=== PATIENT | female | born 1960 | race Two or more races ===

== ENCOUNTER 2018-07-07 17:10 | Inpatient (IN) | payer MEDICARE, MEDICAID ==
[~2018-07-07] VITALS: Ht 162.6 cm; Wt 107.6 kg
[2018-07-07] MEDS ORDERED: SODIUM CHLORIDE FLUSH 10ML SYR IVF ONE (17:30)
[2018-07-07] MEDS ORDERED: MORPHINE SULFATE 4 MG/ML, 1ML ONE ×2 (18:28→20:51)
[2018-07-07] MEDS ORDERED: ONDANSETRON 2MG/ML, 2ML ONE (18:28)
[2018-07-07] MEDS ORDERED: ONDANSETRON 2MG/ML, 2ML IVPush ONE (18:30)
[2018-07-07] MEDS: MORPHINE SULFATE 4 MG/ML, 1ML IVPush PRN ×2 (18:59→20:53)
[2018-07-07] MEDS ORDERED: SODIUM CHLORIDE FLUSH 10ML SYR IVF PRN (19:00)
[2018-07-07 19:02] LABS: BASOPHILS # (AUTO) 0.03 x10^3/uL (0-0.1); BASOPHILS % (AUTO) 1 % (0-1); EOSINOPHILS # (AUTO) 0.09 x10^3/uL (0-0.4); EOSINOPHILS % (AUTO) 2 % (1-7); LYMPHOCYTES # (AUTO) 1.39 x10^3/uL (1-3.4); LYMPHOCYTES % (AUTO) 27 % (22-44); MD NO; MEAN CORPUSCULAR HEMOGLOBIN 28.7 pg (27.0-34.8); MEAN CORPUSCULAR HGB CONC 32.8 g/dL (32.4-35.8); MEAN CORPUSCULAR VOLUME 87.3 fL (80-100); MEAN PLATELET VOLUME 8.1 fL (7.4-10.4); MONOCYTES # (AUTO) 0.39 x10^3/uL (0.2-0.8); MONOCYTES % (AUTO) 8 % (2-9); NEUTROPHILS # (AUTO) 3.21 x10^3/uL (1.8-6.8); NEUTROPHILS % (AUTO) 63 % (42-75); PLATELET COUNT 219 x10^3/uL (130-400); RED BLOOD COUNT 3.99 x10^6/uL (3.82-5.3); RED CELL DISTRIBUTION WIDTH 17.1 % (9.6-15.2)
[2018-07-07 19:12] LABS: INTERNATIONAL NORMALIZED RATIO 1.2 (0.93-1.1); PROTHROMBIN TIME 12.5 Seconds (9.6-11.5)
[2018-07-07 19:14] LABS: ANION GAP 6 mmol/L (5-15); CALCIUM 7.7 mg/dL (8.5-10.1); CHLORIDE 109 mmol/L (98-107)
[2018-07-07 19:15] LABS: CREATININE 0.78 mg/dL (0.55-1.02)
--- NOTE | 2018-07-07 19:22 | NUR ---
PT RESTING ON GURNEY RR EVEN AND UNLABORED. PT ON CONT. SPO2, BP MONITORING, VSS. PT DENIES NEEDS ATT.
[2018-07-07] MEDS ORDERED: ONDANSETRON 2MG/ML, 2ML IVPush PRN (19:30)
[2018-07-07] MEDS ORDERED: POLYETHYLENE GLYCOL 17 GM PACKET PO PRN (19:30)
[2018-07-07] MEDS ORDERED: morphine SULFATE 10 MG/ML, 1ML IVPush PRN (19:30)
--- NOTE | 2018-07-07 20:13 | NUR ---
marixa (ALEJA) [phone] (CELL) [phone] (HOME) CLEMENTE (SON) [phone] (CELL)
--- NOTE | 2018-07-07 21:03 | NUR ---
REPORT GIVEN TO JAIR PETTY
[2018-07-07] MEDS: SODIUM CHLORIDE 0.9% 1,000 ML IV SCH (21:20)
[2018-07-07] MEDS: GABAPENTIN 300 MG CAPSULE PO SCH (21:20)
[2018-07-07 21:31] VITALS: BP 174/94
[2018-07-07 21:33] VITALS: BP 157/90
[2018-07-08 01:58] VITALS: BP 158/88
[2018-07-08 05:51] LABS: ANION GAP 5 mmol/L (5-15); CALCIUM 7.6 mg/dL (8.5-10.1); CHLORIDE 106 mmol/L (98-107)
[2018-07-08 05:55] LABS: CREATININE 0.81 mg/dL (0.55-1.02)
[2018-07-08 06:04] LABS: BASOPHILS # (AUTO) 0.04 x10^3/uL (0-0.1); BASOPHILS % (AUTO) 1 % (0-1); EOSINOPHILS # (AUTO) 0.17 x10^3/uL (0-0.4); EOSINOPHILS % (AUTO) 2 % (1-7); LYMPHOCYTES % (AUTO) 17 % (22-44); MD NO; MEAN CORPUSCULAR HEMOGLOBIN 28.7 pg (27.0-34.8); MEAN CORPUSCULAR HGB CONC 33.1 g/dL (32.4-35.8); MEAN CORPUSCULAR VOLUME 86.8 fL (80-100); MONOCYTES # (AUTO) 0.79 x10^3/uL (0.2-0.8); MONOCYTES % (AUTO) 11 % (2-9); NEUTROPHILS % (AUTO) 69 % (42-75); PLATELET COUNT 208 x10^3/uL (130-400); RED BLOOD COUNT 3.83 x10^6/uL (3.82-5.3); RED CELL DISTRIBUTION WIDTH 16.7 % (9.6-15.2)
[2018-07-08 07:06] VITALS: BP 159/89
[2018-07-08] MEDS ORDERED: ROPIvacaine/PF 0.5%, 30 ML ONE (08:20)
[2018-07-08] MEDS ORDERED: FENTANYL PF 100 MCG/2ML ONE ×2 (08:29→09:48)
[2018-07-08] MEDS ORDERED: LABETALOL 5MG/ML, 20ML IV PRN (08:30)
[2018-07-08] MEDS ORDERED: OXYcodone 5 MG/5 ML ORAL.SOL UDC PO PRN (08:30)
[2018-07-08] MEDS ORDERED: MEPERIDINE/PF 25MG/0.5ML IVPush PRN (08:30)
[2018-07-08] MEDS ORDERED: ACETAMINOPHEN 325 MG TABLET PO PRN ×2 (08:30→11:30)
[2018-07-08] MEDS ORDERED: hydrALAzine 20 MG/ML, 1ML IV PRN (08:30)
[2018-07-08] MEDS ORDERED: METOCLOPRAMIDE 5 MG/ML, 2ML IV PRN (08:30)
[2018-07-08] MEDS ORDERED: LORazepam 2 MG/ML, 1ML IVPush PRN (08:30)
[2018-07-08] MEDS ORDERED: HYDROmorphone 2 MG/ML, 1ML IVPush PRN (08:30)
[2018-07-08] MEDS ORDERED: LIDOCAINE PF 2%, 5ML ONE (08:35)
[2018-07-08] MEDS ORDERED: GLYCOPYRROLATE 0.2MG/1ML, 5ML ONE (08:35)
[2018-07-08] MEDS ORDERED: KETOROLAC 30 MG/1 ML ONE (08:35)
[2018-07-08] MEDS ORDERED: PROPOFOL 10 MG/ML, 20ML ONE (08:35)
[2018-07-08] MEDS ORDERED: CEFAZOLIN 1,000 MG ONE (08:35)
[2018-07-08] MEDS ORDERED: ROCURONIUM 10 MG/ML,10ML ONE (08:35)
[2018-07-08] MEDS ORDERED: DEXAMETHASONE 4 MG/ML, 5ML ONE (08:35)
[2018-07-08] MEDS ORDERED: ONDANSETRON 2MG/ML, 2ML ONE (08:35)
[2018-07-08] MEDS ORDERED: NEOSTIGMINE 1 MG/ML, 10ML ONE (08:35)
[2018-07-08] MEDS ORDERED: SUCCINYLCHOLINE 20 MG/ML, 10ML ONE (08:35)
[2018-07-08] MEDS: GABAPENTIN 300 MG CAPSULE PO SCH ×3 (08:38→21:22)
[2018-07-08] MEDS ORDERED: TRANEXAMIC ACID 100 MG/ML, 10ML ONE (08:56)
[2018-07-08] MEDS ORDERED: AMLODIPINE 5 MG TABLET PO ONE (09:00)
[2018-07-08] MEDS ORDERED: MIDAZOLAM 1 MG/ML, 2ML ONE (09:06)
[2018-07-08] MEDS ORDERED: NEOSPORIN OINT, 15GM ONE (09:26)
[2018-07-08] MEDS ORDERED: OXYcodone 5 MG/5 ML ORAL.SOL UDC ONE (09:48)
[2018-07-08] MEDS ORDERED: ACETAMINOPHEN 650 MG/20.3 ML UDC ONE (09:48)
[2018-07-08] MEDS: FENTANYL PF 100 MCG/2ML IV PRN ×4 (09:55→10:35)
[2018-07-08] MEDS ORDERED: MORPHINE SULFATE 4 MG/ML, 1ML ONE (10:27)
[2018-07-08] MEDS: MORPHINE SULFATE 4 MG/ML, 1ML IVPush PRN ×2 (10:28→10:40)
[2018-07-08 11:05] VITALS: BP 158/90
[2018-07-08] MEDS: SODIUM CHLORIDE 0.9% 1,000 ML IV SCH (11:18)
[2018-07-08] MEDS ORDERED: BISACODYL 10 MG SUPP PR PRN (11:30)
[2018-07-08] MEDS ORDERED: MAGNESIUM HYDROXIDE 8%, 30ML UDC PO PRN (11:30)
[2018-07-08] MEDS ORDERED: ALUMINUM/MAG/SIMETHICONE 30 ML UDC PO PRN (11:30)
[2018-07-08] MEDS ORDERED: SENNA/DOCUSATE TABLET PO PRN (11:30)
[2018-07-08] MEDS: HYDROcodone/APAP 7.5-325MG/15ML UDC PO PRN ×2 (12:22→21:22)
[2018-07-08] MEDS: POTASSIUM CHLORIDE 10 MEQ in D5%-0.45% NACL 1,000 ML IV SCH (12:24)
[2018-07-08 12:46] VITALS: BP 145/87
[2018-07-08] MEDS: CEFAZOLIN PMX 1GM/50ML 50 ML IVPB SCH (16:43)
[2018-07-08] MEDS: KETOROLAC 30 MG/1 ML IV SCH (17:35)
[2018-07-08 19:35] VITALS: BP 157/83
[2018-07-08] MEDS ORDERED: ZOLPIDEM 5MG TABLET PO PRN (21:00)
[2018-07-08] MEDS: DOCUSATE 100 MG CAPSULE PO SCH (21:22)
[2018-07-09] MEDS: SODIUM CHLORIDE 0.9% 1,000 ML IV SCH ×3 (00:20→09:59)
[2018-07-09] MEDS: CEFAZOLIN PMX 1GM/50ML 50 ML IVPB SCH (01:02)
[2018-07-09] MEDS: KETOROLAC 30 MG/1 ML IV SCH ×2 (01:54→08:57)
[2018-07-09 03:29] VITALS: BP 154/95
[2018-07-09] MEDS: HYDROcodone/APAP 7.5-325MG/15ML UDC PO PRN ×5 (04:31→20:40)
[2018-07-09 05:29] LABS: ANION GAP 5 mmol/L (5-15); CALCIUM 7.6 mg/dL (8.5-10.1); CHLORIDE 104 mmol/L (98-107); CREATININE 0.85 mg/dL (0.55-1.02)
[2018-07-09 05:31] LABS: BASOPHILS # (AUTO) 0.01 x10^3/uL (0-0.1); BASOPHILS % (AUTO) 0 % (0-1); EOSINOPHILS % (AUTO) 0 % (1-7); LYMPHOCYTES # (AUTO) 0.69 x10^3/uL (1-3.4); LYMPHOCYTES % (AUTO) 10 % (22-44); MD NO; MEAN CORPUSCULAR HEMOGLOBIN 28.4 pg (27.0-34.8); MEAN CORPUSCULAR HGB CONC 32.4 g/dL (32.4-35.8); MEAN CORPUSCULAR VOLUME 87.7 fL (80-100); MEAN PLATELET VOLUME 8.7 fL (7.4-10.4); MONOCYTES # (AUTO) 0.49 x10^3/uL (0.2-0.8); MONOCYTES % (AUTO) 7 % (2-9); NEUTROPHILS # (AUTO) 5.95 x10^3/uL (1.8-6.8); NEUTROPHILS % (AUTO) 83 % (42-75); PLATELET COUNT 149 x10^3/uL (130-400); RED BLOOD COUNT 3.06 x10^6/uL (3.82-5.3); RED CELL DISTRIBUTION WIDTH 16.4 % (9.6-15.2)
[2018-07-09] MEDS: ENOXAPARIN 30 MG/0.3 ML SQ SCH ×2 (05:57→17:41)
[2018-07-09 06:50] VITALS: BP 170/92
[2018-07-09] MEDS: GABAPENTIN 300 MG CAPSULE PO SCH ×3 (08:25→20:40)
[2018-07-09] MEDS: MULTIVITAMINS/MINERALS TABLET PO SCH (08:25)
[2018-07-09] MEDS: DOCUSATE 100 MG CAPSULE PO SCH ×2 (08:25→20:40)
[2018-07-09] MEDS: POTASSIUM CHLORIDE 10 MEQ in D5%-0.45% NACL 1,000 ML IV SCH (08:25)
[2018-07-09] MEDS: LEVOTHYROXINE 50 MCG TABLET PO SCH (08:56)
[2018-07-09] MEDS: LISINOPRIL 10 MG TABLET PO SCH (08:57)
[2018-07-09] MEDS: AMLODIPINE 5 MG TABLET PO SCH (08:57)
[2018-07-09 14:04] VITALS: BP 126/64
[2018-07-09 19:11] VITALS: BP 125/74
[2018-07-10 01:34] VITALS: BP 143/80
[2018-07-10] MEDS: HYDROcodone/APAP 7.5-325MG/15ML UDC PO PRN ×4 (02:39→18:32)
[2018-07-10] MEDS: SODIUM CHLORIDE 0.9% 1,000 ML IV SCH ×2 (03:00→16:20)
[2018-07-10] MEDS: POTASSIUM CHLORIDE 10 MEQ in D5%-0.45% NACL 1,000 ML IV SCH (03:58)
[2018-07-10] MEDS: LEVOTHYROXINE 50 MCG TABLET PO SCH (05:17)
[2018-07-10] MEDS: ENOXAPARIN 30 MG/0.3 ML SQ SCH ×2 (05:17→18:32)
[2018-07-10 05:47] LABS: BASOPHILS # (AUTO) 0.03 x10^3/uL (0-0.1); BASOPHILS % (AUTO) 1 % (0-1); EOSINOPHILS # (AUTO) 0.15 x10^3/uL (0-0.4); EOSINOPHILS % (AUTO) 2 % (1-7); LYMPHOCYTES % (AUTO) 27 % (22-44); MD NO; MEAN CORPUSCULAR HEMOGLOBIN 29.3 pg (27.0-34.8); MEAN CORPUSCULAR HGB CONC 33.6 g/dL (32.4-35.8); MEAN CORPUSCULAR VOLUME 87.2 fL (80-100); MONOCYTES # (AUTO) 0.68 x10^3/uL (0.2-0.8); MONOCYTES % (AUTO) 11 % (2-9); NEUTROPHILS # (AUTO) 3.76 x10^3/uL (1.8-6.8); NEUTROPHILS % (AUTO) 60 % (42-75); PLATELET COUNT 148 x10^3/uL (130-400); RED BLOOD COUNT 2.93 x10^6/uL (3.82-5.3); RED CELL DISTRIBUTION WIDTH 17.4 % (9.6-15.2)
[2018-07-10 05:57] LABS: ANION GAP 5 mmol/L (5-15); CALCIUM 7.5 mg/dL (8.5-10.1); CHLORIDE 106 mmol/L (98-107)
[2018-07-10 07:45] VITALS: BP 135/82
[2018-07-10] MEDS: MULTIVITAMINS/MINERALS TABLET PO SCH (10:47)
[2018-07-10] MEDS: AMLODIPINE 5 MG TABLET PO SCH (10:47)
[2018-07-10] MEDS: DOCUSATE 100 MG CAPSULE PO SCH (10:47)
[2018-07-10] MEDS: GABAPENTIN 300 MG CAPSULE PO SCH ×2 (10:47→16:11)
[2018-07-10] MEDS: LISINOPRIL 10 MG TABLET PO SCH (10:47)
[2018-07-10 12:15] VITALS: BP 122/75
[2018-07-10] MEDS ORDERED: LEVO50TA PO (12:23)
[2018-07-10] MEDS ORDERED: AMLO-150 PO (12:23)
[2018-07-10] MEDS ORDERED: CELE200C PO (12:23)
[2018-07-10] MEDS ORDERED: MULT-484 PO (12:23)
[2018-07-10] MEDS ORDERED: GABA300C10 PO (12:23)
[2018-07-10] MEDS ORDERED: LISI-167 PO (12:23)
[2018-07-10] MEDS ORDERED: ACET325T14 PO (12:23)
[2018-07-10] MEDS ORDERED: DOCU-131 PO (12:23)
[2018-07-10] MEDS ORDERED: HYDR15SO3 PO (12:23)
[2018-07-10] MEDS ORDERED: ENOX30SY4 SQ (12:23)
== END 2018-07-10 18:45 | DRG 480 ==
LOC: ED 19:17 → EDIP 19:18 → 4NOR 21:13
PROVIDERS: ADMIT Family Medicine; ATTEND Family Medicine
PROC: 0QS636Z Reposition Right Upper Femur with Intramedullary Internal Fixation Device, Percutaneous Approach (ICD-10-PCS; principal; 2018-07-08 08:30)
DX: S72.401A Unspecified fracture of lower end of right femur, initial encounter for closed fracture (principal); R53.2 Functional quadriplegia; S82.201A Unspecified fracture of shaft of right tibia, initial encounter for closed fracture; E03.9 Hypothyroidism, unspecified; G62.9 Polyneuropathy, unspecified; I10 Essential (primary) hypertension; S82.401A Unspecified fracture of shaft of right fibula, initial encounter for closed fracture; W01.0XXA Fall on same level from slipping, tripping and stumbling without subsequent striking against object, initial encounter; Y93.89 Activity, other specified; Y92.89 Other specified places as the place of occurrence of the external cause; Y99.8 Other external cause status; Z79.899 Other long term (current) drug therapy
CPT/HCPCS: 36415; 71045; 76000; 80048; 82040; 85025; 85610; 85730; 93005; 96374; 96375; 99285; C1713; G0378; J0690; J1100; J1650; J1885; J2250; J2405; J2704; J2710; J2795; J3010; J3480; J3490; J0330; J2270; J7030